=== PATIENT | female | born 1960 ===

== ENCOUNTER 2018-02-04 23:31 | Emergency (ER) | payer BC ==
[2018-02-04] MEDS ORDERED: Sodium Chloride 0.9% 1,000 ML IV ONE (23:44)
[2018-02-04] MEDS ORDERED: Sucralfate 1 gm/10 ml Oral Susp UD PO STA (23:45)
[2018-02-04] MEDS ORDERED: Iohexol 240 (50 ml) PO ONE (23:46)
--- NOTE | 2018-02-04 23:47 | C.PDOC ---
History Of Present Illness 58 y/o female presents to the ED complaining of abdominal pain that began tonight. She describes pain as localized to the epigastrium, and radiating toward her back. Otherwise she denies any associated vomiting, diarrhea, or urinary symptoms. She admits to feeling nauseous. No fevers or chills. Time Seen by Provider: 02/04/18 23:40 Chief Complaint (Nursing): Abdominal Pain History Per: Patient History/Exam Limitations: no limitations Onset/Duration Of Symptoms: Hrs Current Symptoms Are (Timing): Still Present Severity: Moderate Location Of Pain/Discomfort: Epigastric Radiation Of Pain To:: Back Quality Of Discomfort: "Pain" Associated Symptoms: Nausea Past Medical History Reviewed: Historical Data, Nursing Documentation, Vital Signs Vital Signs: Last Vital Signs Temp 98.2 F 02/04/18 23:39 Pulse 90 02/04/18 23:39 Resp 20 02/04/18 23:39 BP 161/90 H 02/04/18 23:39 Pulse Ox 100 02/04/18 23:39 - Medical History PMH: Gastritis Denies: Chronic Kidney Disease Surgical History: Cholecystectomy Family History: States: Unknown Family Hx - Social History Hx Tobacco Use: No Hx Alcohol Use: No Hx Substance Use: No - Immunization History Hx Tetanus Toxoid Vaccination: Yes Hx Influenza Vaccination: Yes Hx Pneumococcal Vaccination: No Review Of Systems Except As Marked, All Systems Reviewed And Found Negative. Constitutional: Negative for: Fever, Chills Respiratory: Negative for: Shortness of Breath Gastrointestinal: Positive for: Nausea, Abdominal Pain. Negative for: Vomiting, Diarrhea, Constipation, Hematochezia Genitourinary: Negative for: Dysuria, Frequency, Hematuria Physical Exam - Physical Exam Appears: Non-toxic, In Acute Distress (moderate) Skin: Warm, Dry Head: Atraumatic, Normacephalic Eye(s): bilateral: Normal Inspection, PERRL, EOMI Oral Mucosa: Moist Neck: Normal ROM Chest: Symmetrical Cardiovascular: Rhythm Regular, No Murmur Respiratory: Normal Breath Sounds, No Accessory Muscle Use Gastrointestinal/Abdominal: Soft, Tenderness (epigastric), No Guarding, No Rebound Back: Normal Inspection, No CVA Tenderness Extremity: Bilateral: Atraumatic, Normal Color And Temperature, Normal ROM Neurological/Psych: Oriented x3, Normal Speech ED Course And Treatment - Laboratory Results Result Diagrams: 02/05/18 00:04 02/05/18 00:04 ECG: Interpreted By Me, Viewed By Me ECG Rhythm: Sinus Rhythm ECG Interpretation: Normal, No Acute Changes Interpretation Of ECG: NSR, normal tracings. Rate From EC O2 Sat by Pulse Oximetry: 100 (on RA) Pulse Ox Interpretation: Normal - CT Scan/US CT A/P Other Rad Studies (CT/US): Read By Radiologist, Radiology Report Reviewed CT/US Interpretation: Name:KIMBERLY RAJAN Exam Date:Feb 05, 2018 1:34:52 AM EST. Modality Type:CT\\SR. Description:CT - ABDOMEN AND PELVIS WITH CORONAL AND SAGITTAL MPRS. Gender:F Laterality:Not applicable. :58 Referring Physician:CHEPE VIGIL MD EXAM: CT Abdomen and Pelvis with IV contrast. CLINICAL HISTORY: Upper abd pain. TECHNIQUE: Axial computed tomography images of the abdomen and pelvis with oral and intravenous contrast. CONTRAST: With; Type and dosage. COMPARISON: None provided. FINDINGS: LUNG BASES: The lung bases appear clear. No pleural effusions are seen. LIVER: Unremarkable. GALLBLADDER AND BILE DUCTS: S/p cholecystectomy. Surgical clips are noted in the gallbladder fossa. CBD is mildly prominent, 9 mm. PANCREAS: Unremarkable. SPLEEN: Unremarkable. ADRENAL GLANDS: Unremarkable. KIDNEYS, URETERS, AND BLADDER: S/p left nephrectomy. The right kidney is WNL. STOMACH AND BOWEL: Unremarkable appearance of the stomach and bowel. No evidence of bowel obstruction. No evidence suggesting enteritis or colitis. APPENDIX: No evidence of acute appendicitis on CT examination. PERITONEUM: No free fluid. No free air. LYMPH NODES: Mendez borderline enlarged lymph nodes are noted in the RLQ, nonspecific. REPRODUCTIVE: Status post complete hysterectomy. VASCULATURE: No evidence of abdominal aortic aneurysm. BONES: No aggressive appearing osseous lesion. No acute osseous pathology evident. IMPRESSION: 1. S/p cholecystectomy. CBD is mildly prominent, 9 mm. 2. S/p left nephrectomy. The right kidney is WNL. 3. Mendez borderline enlarged lymph nodes are noted in the RLQ, nonspecific. 4. Status post complete hysterectomy. 5. No acute pathology. . Electronically signed on Feb 05, 2018 3:17:47 AM EST by: Lefty Jones M.D., BRUCE Certified By [facility]BR & [facility] Progress Note: Blood work, UA, and CT A/P ordered. IV fluids, bentyl, carafate, and protonix given. Reevaluation Time: 03:05 (patient reports feeling better, still awaiting CT report) Reassessment Condition: Improved Disposition Counseled Patient/Family Regarding: Diagnosis - Disposition Referrals: [facility] [Outside] Disposition: HOME/ ROUTINE Disposition Time: 03:20 Condition: IMPROVED Prescriptions: Dicyclomine [Bentyl] 10 mg PO TID #14 cap Pantoprazole Sodium [Protonix] 20 mg PO DAILY #20 ect Sucralfate [Carafate] 1 gm PO BID #14 tab Instructions: Acid Reflux (Gastroesophageal Reflux Disease), Adult (DC), Gastritis (DC), Ulcer and Gastritis Diet Forms: YES.[employer] ([place]) - POA Present On Arrival: None - Clinical Impression Clinical Impression: Gastroesophageal reflux disease, Gastritis, Abdominal pain - Scribe Statement The provider has reviewed the documentation as recorded by the Neville Stacy Provider Attestation: All medical record entries made by the Neville were at my direction and persona lly dictated by me. I have reviewed the chart and agree that the record accurately reflects my personal performance of the history, physical exam, medical decision making, and the department course for this patient. I have also personally directed, reviewed, and agree with the discharge instructions and disposition.
[2018-02-05 00:11] LABS: BASO % 0.7 % (0.0-2.0); EOS # 0.1 K/uL (0.0-0.7); EOS % 1.3 % (0.0-4.0); HEMOGLOBIN 13.5 g/dL (11.0-16.0); LYMPH % 28.5 % (20.0-40.0); MEAN CELL VOLUME 81.8 fL (81.0-99.0); MEAN CORPUSCULAR HEMOGLOBIN 27.9 pg (27.0-31.0); MEAN CORPUSCULAR HGB CONC 34.1 g/dL (33.0-37.0); MEAN PLATELET VOLUME 8.7 fL (7.2-11.7); MONO # 0.8 K/uL (0.0-0.8); NEUT % 58.5 % (50.0-75.0); NRBC % 0.1 % (0.0-2.0); RBC 4.82 Mil/uL (3.80-5.20); WHITE BLOOD COUNT 6.9 K/uL (4.8-10.8)
[2018-02-05] MEDS ORDERED: Iohexol 240 (50 ml) ONE (00:11)
[2018-02-05 00:29] LABS: ALB/GLOB RATIO 1.2 (1.0-2.1); ALT/SGPT 119 U/L (9-52); AST/SGOT 226 U/L (14-36); BLOOD UREA NITROGEN 17 mg/dL (7-17); CALCIUM 9.3 mg/dl (8.6-10.4); GFR NON-AFRICAN AMERICAN > 60; LIPASE 117 U/L (23-300)
[2018-02-05 00:35] LABS: SQUAMOUS EPITHIAL 1 /hpf (0-5); URINE BILIRUBIN NEGATIVE (NEGATIVE); URINE BLOOD NEGATIVE (NEGATIVE); URINE CLARITY Clear (Clear); URINE COLOR Straw (YELLOW); URINE GLUCOSE (UA) NORMAL (Normal); URINE LEUKOCYTE ESTERASE NEG Leu/uL (Negative); URINE PROTEIN NEGATIVE (NEGATIVE)
[2018-02-05] MEDS ORDERED: Iodixanol 320 MG/ML 100 ML BOTTLE IV ONE (01:23)
[2018-02-05 03:35] VITALS: BP 134/72; PULSE 83; RESP 18; TEMP 97.6; O2SAT 95
--- NOTE | 2018-02-05 09:36 | CT ---
Date of service: 02/05/2018 PROCEDURE: CT Abdomen and Pelvis with contrast HISTORY: upper abd pqain COMPARISON: No prior similar study available for comparison. TECHNIQUE: Contrast dose: 100 mL of Visipaque 320 intravenously. Axial and reformatted coronal and sagittal CT images of the abdomen and pelvis were obtained after IV and oral contrast administration. Radiation dose: Total exam DLP = 332.67 mGy-cm. This CT exam was performed using one or more of the following dose reduction techniques: Automated exposure control, adjustment of the mA and/or kV according to patient size, and/or use of iterative reconstruction technique. FINDINGS: LOWER THORAX: Unremarkable. LIVER: Unremarkable. No gross lesion or ductal dilatation. GALLBLADDER AND BILE DUCTS: The patient is status post cholecystectomy. The common bile duct is mildly dilated. PANCREAS: Unremarkable. No gross lesion or ductal dilatation. SPLEEN: Unremarkable. ADRENALS: Unremarkable. No mass. KIDNEYS AND URETERS: The patient is status post left nephrectomy. The right kidney enhance homogeneously. No evidence of significant right hydronephrosis. VASCULATURE: Unremarkable. No aortic aneurysm. No aortic atherosclerotic calcification or mural plaque present. BOWEL: Unremarkable. No obstruction. No gross mural thickening. APPENDIX: The appendix is slightly prominent in size. However no definite CT evidence of acute appendicitis. PERITONEUM: Unremarkable. No free fluid. No free air. LYMPH NODES: Slightly prominent right lower abdomen lymph nodes are seen. No enlarged lymph nodes. BLADDER: Unremarkable. REPRODUCTIVE: The patient is status post hysterectomy. BONES: No acute fracture. OTHER FINDINGS: None. IMPRESSION: Slightly prominent right lower abdomen lymph nodes may represent mesenteric adenitis. The appendix is slightly prominent in size without definite CT evidence of acute appendicitis. Additional findings as discussed above. Preliminary report was submitted by [facility] contains concordant findings.
== END 2018-02-05 03:36 | disposition home or self-care (01) ==
LOC: C.ER 23:31
DX: K21.9 Gastro-esophageal reflux disease without esophagitis (principal); K29.70 Gastritis, unspecified, without bleeding; R10.9 Unspecified abdominal pain
CPT/HCPCS: 74177; 80053; 81001; 83690; 85025; 96360; 96361; 96372; 96374; 99285; C9113; J0500; J7030; Q9966; Q9967

== ENCOUNTER 2018-04-16 06:29 | Day surgery (SDC) | payer BC ==
[2018-04-16] MEDS ORDERED: Lactated Ringer's 500 ML IV ONE (08:47)
--- NOTE | 2018-04-16 08:47 | CP.SDSHP ---
Same Day Surgery H & P - History Proposed Procedure: endoscopy Pre-Op Diagnosis: abdom pain - Previous Medical/Surgical History Comments: diverticulosis - Allergies Allergies: Allergies No Known Allergies Allergy (Verified 02/04/18 23:43) - Physical Exam Vital Signs: Vital Signs 04/16/18 07:08 Temperature 97.5 F L Pulse Rate 80 Respiratory 20 Rate Blood Pressure 129/72 O2 Sat by Pulse 97 Oximetry Mental Status: Alert & Oriented x3 Neuro: WNL Heart: WNL Lungs: WNL GI: WNL - {Optional Preform as Required} Abdomen: WNL - Impression Impression: gastritis Pt. Evaluated Today:Candidate for Anesthesia & Procedure: Yes - Date & Time Date: 04/16/18 Time: 08:10 Short Stay Discharge - Short Stay Discharge Admitting Diagnosis/Reason for Visit: EPIGASTRIC PAIN Disposition: HOME/ ROUTINE
[2018-04-16] MEDS ORDERED: Lidocaine Hydrochloride 5 ML INJ ONE (08:50)
[2018-04-16] MEDS ORDERED: Propofol 10 mg/ml Inj (20 ML) ONE (08:50)
[2018-04-16 08:54] VITALS: O2SAT 100
[2018-04-16 10:28] VITALS: TEMP 97.4
[2018-04-16 10:35] VITALS: BP 130/70; PULSE 72; RESP 20
== END 2018-04-16 10:15 | disposition home or self-care (01) ==
LOC: C.ENDO 06:29
PROVIDERS: ATTEND Internal Medicine Gastroenterology
DX: K29.50 Unspecified chronic gastritis without bleeding (principal); R10.13 Epigastric pain; K21.0 Gastro-esophageal reflux disease with esophagitis
CPT/HCPCS: 43239; 88305; 88312; 88313; 88342; J2704; J7120

== ENCOUNTER 2018-04-23 06:40 | Day surgery (SDC) | payer BC ==
[2018-04-22 11:07] VITALS: BMI 24.7
[2018-04-23] MEDS ORDERED: Lactated Ringer's 500 ML IV ONE ×2 (07:59)
[2018-04-23] MEDS ORDERED: Propofol 10 mg/ml Inj (20 ML) ONE (08:04)
--- NOTE | 2018-04-23 08:12 | CP.SDSHP ---
Same Day Surgery H & P - History Proposed Procedure: colonoscopy Pre-Op Diagnosis: screening - Previous Medical/Surgical History Comments: gastritis, diverticulosis - Allergies Allergies: Allergies No Known Allergies Allergy (Verified 04/23/18 06:56) - Physical Exam Vital Signs: Vital Signs 04/23/18 06:57 Temperature 97.7 F Pulse Rate 72 Respiratory 19 Rate Blood Pressure 105/76 O2 Sat by Pulse 99 Oximetry Mental Status: Alert & Oriented x3 Neuro: WNL Heart: WNL Lungs: WNL GI: WNL - {Optional Preform as Required} Abdomen: WNL - Impression Impression: screening Pt. Evaluated Today:Candidate for Anesthesia & Procedure: Yes - Date & Time Date: 04/23/18 Time: 08:00 Short Stay Discharge - Short Stay Discharge Admitting Diagnosis/Reason for Visit: ENCOUNTER FOR SCREENING FOR MALIGNANT NEOPLASM OF Disposition: HOME/ ROUTINE
[2018-04-23 08:15] VITALS: O2SAT 100
[2018-04-23 09:34] VITALS: TEMP 97.4
[2018-04-23 09:50] VITALS: BP 119/67; PULSE 58; RESP 20
== END 2018-04-23 09:30 | disposition home or self-care (01) ==
LOC: C.ENDO 06:40
PROVIDERS: ATTEND Internal Medicine Gastroenterology
DX: Z12.11 Encounter for screening for malignant neoplasm of colon (principal); D12.5 Benign neoplasm of sigmoid colon; K57.30 Diverticulosis of large intestine without perforation or abscess without bleeding; K64.0 First degree hemorrhoids; K29.70 Gastritis, unspecified, without bleeding; Z98.890 Other specified postprocedural states; Z90.49 Acquired absence of other specified parts of digestive tract; Z90.5 Acquired absence of kidney; Z79.899 Other long term (current) drug therapy
CPT/HCPCS: 45380; 88305; J2001; J2704; J7120